=== PATIENT | male | born 1985 | race Caucasian/White ===

== ENCOUNTER → 2019-10-02 | Emergency (ER) | payer OTHER ==
[~2019-10-02] VITALS: Ht 175.3 cm; Wt 63.5 kg
[~2019-10-02] MED LIST: AMOX1TAB12 PO; CIPRO500 MG PO; CLONAZEPAM0.5 MG; PYRIDIUM100 M1 PO; ULTRACET PO
== END | disposition home or self-care (01) ==
LOC: ER → EDBD 13:48 → ER 14:58
DX: T40.5X1A Poisoning by cocaine, accidental (unintentional), initial encounter (principal); F41.9 Anxiety disorder, unspecified